=== PATIENT | male | born 1980 | race Caucasian/White ===

== ENCOUNTER 2016-05-06 18:24 | Emergency (ER) | payer BC ==
[~2016-05-06] VITALS: Ht 185.4 cm; Wt 132.3 kg
[2016-05-06 19:16] VITALS: BP 127/83
== END 2016-05-06 19:18 | disposition home or self-care (01) ==
LOC: ED 18:27
DX: S90.31XA Contusion of right foot, initial encounter (principal); W21.03XA Struck by baseball, initial encounter; Y93.64 Activity, baseball; Y92.830 Public park as the place of occurrence of the external cause
CPT/HCPCS: 99282

== ENCOUNTER 2016-07-31 17:45 | Emergency (ER) | payer BC ==
[~2016-07-31] VITALS: Ht 185.4 cm; Wt 126.0 kg
[2016-07-31] MEDS ORDERED: ASPIRIN 81 MG CHEW (LOW-DOSE) ONE (18:22)
--- NOTE | 2016-07-31 18:32 | NUR ---
ASPIRIN 81MG CHEWABLES X4 GIVEN TO PT
--- NOTE | 2016-07-31 18:36 | Diagnostic Imaging Report ---
INDICATION: Chest pain. COMPARISON: No prior examination is available for comparison. FINDINGS: The heart size, mediastinal configuration, and pulmonary vascularity are within normal limits. There is no pleural effusion, pneumothorax, or pneumonia. The osseous structures are unremarkable. IMPRESSION: No acute cardiopulmonary abnormality. Dictated by: Dictated on workstation # [id number]
[2016-07-31] MEDS ORDERED: CALC500T7 PO (18:41)
[2016-07-31] MEDS ORDERED: [UNRECOGNIZED DRUG - CODE] PO (18:41)
[2016-07-31 18:47] LABS: ALBUMIN 4.9 g/dL (3.4-5.0); ALKALINE PHOSPHATASE 59 U/L (38-126); ANION GAP 19.5 MEQ/L (3-15); BUN/CREATININE RATIO 13 (10-20); CALCULATED IONIZED CALCIUM 3.8 mg/dL (3.8-4.6); TOTAL PROTEIN 8.2 g/dL (6.4-8.5)
[2016-07-31 18:49] LABS: BASOPHILS % (AUTO) 1 % (0-2); EOSINOPHILS # (AUTO) 0.1 10^3uL; EOSINOPHILS % (AUTO) 1 % (0-4); LYMPHOCYTES # (AUTO) 1.8 X10^3; MEAN CORPUSCULAR HEMOGLOBIN 28.1 PG (26.0-34.0); MEAN CORPUSCULAR HGB CONC 36.5 g/dL (31.0-37.0); MEAN CORPUSCULAR VOLUME 77 FL (80-100); MONOCYTES # (AUTO) 0.3 X10^3; MONOCYTES % (AUTO) 5 % (3-11); NEUTROPHILS # (AUTO) 4.2 X10^3; NEUTROPHILS % (AUTO) 65 % (51-67); PLATELET COUNT 193 10^3uL (150-450); WHITE BLOOD COUNT 6.41 10^3uL (4.0-11.0)
[2016-07-31] MEDS ORDERED: GI COCKTAIL 55 ML UDC PO ONE (18:50)
[2016-07-31] MEDS ORDERED: MAG HYDROX/AL HYDROX/SIMETH 400-400-40/5 ML (MAG-AL PLUS XS) 30 ML UDC ONE (19:12)
[2016-07-31] MEDS ORDERED: LIDOCAINE 2% VISCOUS 20ML UDC PO ONE (19:13)
[2016-07-31] MEDS ORDERED: BELLADONNA/PHENOBARBITAL ELIXIR (DONNATAL) 10 ML UDC ONE (19:13)
[2016-07-31] MEDS ORDERED: LORazepam 2 MG/ML (ATIVAN) 1 ML VIAL IV ONE (19:45)
[2016-07-31] MEDS ORDERED: KETOROLAC 30 MG/ML (TORADOL) 1 ML VIAL IV ONE (19:45)
[2016-07-31 20:22] VITALS: BP 122/69
== END 2016-07-31 20:26 | disposition home or self-care (01) ==
LOC: ED 17:45
DX: R07.9 Chest pain, unspecified (principal); F41.9 Anxiety disorder, unspecified; M94.0 Chondrocostal junction syndrome [Tietze]
CPT/HCPCS: 36415; 71010; 80053; 84484; 85025; 93005; 96374; 96375; 99285; J1885; J2060; 93010; 99284